=== PATIENT | male | born 1995 | race Caucasian/White ===

== ENCOUNTER 2022-06-10 11:28 | Emergency (ER) | payer BC, OTHER ==
[2022-06-10] MEDS ORDERED: Tetracaine HCl/PF 0.5% 4 ML Bottle EYERT ONE (11:34)
[2022-06-10] MEDS ORDERED: Tetracaine HCl/PF 0.5% 4 ML Bottle ONE (11:35)
== END 2022-06-10 12:30 | disposition home or self-care (01) ==
LOC: LL.ED 11:28
DX: S05.01XA Injury of conjunctiva and corneal abrasion without foreign body, right eye, initial encounter (principal); W22.09XA Striking against other stationary object, initial encounter
CPT/HCPCS: 99282